=== PATIENT | female | born 1980 | race American Indian/Alaskan Native ===

== ENCOUNTER 2017-08-20 15:06 | Emergency (ER) | payer MEDICAID ==
[2017-08-20 16:06] VITALS: BMI 26.9
[2017-08-20 20:12] VITALS: BP 104/76; PULSE 89; RESP 18; TEMP 97.6; O2SAT 97
--- NOTE | 2017-08-20 21:14 | OBHP ---
Datetime: 08/20/2017 15:00 IP Adm Impression Other: nst reactive IP Admit Plan: Discharge home Admit Comment, IP Provider: 37 year old female sent by her MOSAIC TECHNICIAN (Dr. Aguilar) for evaluation due to advanced maternal age. Patient has no complaints at this time. Patient denies any fever, ch ills, headache, dizziness, changes in vision, chest pain, SOB, abdominal pain, nausea, vomiting, diar jhonatan, constipation, or any urinary symptoms. Issues: Denies, Private Patient of Dr. 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 Last PAP, 5 years ago. Allergies: NKDA Medications: PNV, PO Iron Medical Hx: Asthma Surgical Hx: Laser eye surgery. Social Hx: Denies alcohol, tobacco, drug use Family Hx: Paternal/Maternal Diabetes and HTN. Vitals: BP-104/72, HR-89, SP02-97%RA PE: Gen: AAOx3, Cardiac: +S1/S2, NO murmurs Pulm: CTA Abd: Gravid Abd, non-tender, Ext: Warm Extremities, trace edema. A/P: 37 female presents due to advanced maternal age for nst -Stable, afebrile -CEFM and TOCO Category I -Attending (Dr. Villalpando) discussed with Dr. Aguilar and recomended no further mangament. -Plan discussed with attending (Dr. Villalpando) Sherry Velasquez DO PGY1 patient examiend,agree with sapphire iverson, assessment and plan Patient here for nst due to AMA NST raective Discharge home follow up withandrea aguilar Extremities - PN: Normal Abdomen - PN: Normal Lungs - PN: Normal Heart - PN: Normal Thyroid - PN: Normal HEENT - PN: Normal General - PN: Normal Contraction Comments Provider: occ Vital Signs Provider: Reviewed; Within Normal Limits IP Chief Complaint: evaluation FHR Category Provider Fetus A: Category I Genitourinary Exam: Normal
== END 2017-08-20 15:42 | disposition home or self-care (01) ==
LOC: C.EROB 15:06
DX: Z36.89 Encounter for other specified antenatal screening (principal); O09.519 Supervision of elderly primigravida, unspecified trimester

== ENCOUNTER 2017-08-26 12:24 | Emergency (ER) | payer MEDICAID ==
--- NOTE | 2017-08-26 13:22 | OBHP ---
Datetime: 08/26/2017 12:46 IP Chief Complaint Other: Advanced Maternal Age Admit Comment, IP Provider: 37 year old female sent by her SUPERVISOR DELIVERY DEPARTMENT (Dr. Hernández) for evaluation (NST) due to advanced maternal age. Patient has no complaints at this time. Patient denies any fev er, chills, headache, dizziness, changes in vision, chest pain, SOB, abdominal pain, nausea, vomiting , diarrhea, constipation, or any urinary symptoms. She endorses Finley-Lin contractions. Denies va ginal discharge/bleeding. She endorses Movement. Issues: Denies, Private Patient of Dr. Hernández OB Hx: 1. Current. 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 Last PAP, 5 years ago. Allergies: NKDA Medications: PNV, PO Iron Medical Hx: Asthma Surgical Hx: Laser eye surgery. Social Hx: Denies alcohol, tobacco, drug use Family Hx: Paternal/Maternal Diabetes and HTN. Vitals: T-98.8, P-90, BP-111/76 PE: Gen: AAOx3, Cardiac: +S1/S2, NO murmurs Pulm: CTA Abd: Gravid Abd, non-tender, Ext: Warm Extremities, trace edema. A/P: 37 female presents due to advanced maternal age for nst -Stable, afebrile -CEFM and ANISHA Further Recs as per Dr. Buckner. nst 130 mod mirlela ctg 1 plan dc home labor given po hy f/u in pmd in 2-3 days Sherry Velasquez DO PGY1 FHR - Baseline A Provider: 140 IP Hx Assessment: The History has been Reviewed and is Current EGA AdmitDate IP: 38.3 IP Chief Complaint: Other
--- NOTE | 2017-08-26 13:25 | OBDCSUM ---
Datetime: 08/26/2017 13:22 Discharged to, Provider: Home Follow up at, Provider: as scuhuled Follow up in weeks, Provider: dr childs Discharge Comment, Provider: labor given po hyr f/u dr gould Discharge Diagnosis Prov Other: nst 38wek
[2017-08-26 17:55] VITALS: BP 100/67; PULSE 117; RESP 18; TEMP 98.8; O2SAT 100
== END 2017-08-26 13:40 | disposition home or self-care (01) ==
LOC: C.EROB 12:24
DX: Z36.89 Encounter for other specified antenatal screening (principal); O09.519 Supervision of elderly primigravida, unspecified trimester

== ENCOUNTER 2017-09-03 16:36 | Inpatient (IN) | payer MEDICAID ==
--- NOTE | 2017-09-03 18:21 | OBHP ---
Datetime: 09/03/2017 17:20 IP Adm Impression: Term, intrauterine ; No Active Labor IP Chief Complaint Other: Advanced Maternal Age Size and Date discrepancy IP Admit Plan: Observation/Evaluation Admit Comment, IP Provider: 37 year old female sent by her DISHWASHING MACHINE REPAIRER (Dr. Hernández) for evaluation (NST, BPP, JAVIER, EFW) due to advanced maternal age as well as fundal height only measuring 35 weeks. Patient denies any acute complaints or distress at the moment. Patient endorses movements, br axton de dios contractions, and clear non-odorous vaginal discharge however denies vaginal bleeding, le akage of fluids. Patient also denies any fever, chills, headache, dizziness, changes in vision, chest pain, shortness of breath, abdominal pain, nausea, vomiting, diarrhea, constipation, or any urinary symptoms. Issues: Denies, Private Patient of Dr. Hernández OB Hx: 1. Current. Currently 39 weeks. Plans on natural without epidural. Patient started at 135 lbs and weights 164 as of today. States course of has been free of issues, recentl y began experiencing non-debilitating lower back pain. 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 Denies abormal pap smears. Last PAP, 5 years ago. Allergies: NKDA Medications: vitamins, PO Iron Medical Hx: Asthma which required several hospitalizations however has never been intubated Surgical Hx: Laser eye surgery. Social Hx: Denies alcohol, tobacco, drug use. Lives at home with her who she has been jefry ied to for 4 years but has been in a monogamous relationship with the same partner since 2005. Denies travel outside the country since . 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 Family Hx: Both mother and father are 66 y.o. - no med issues. Mat aunt diagnosed 2017, age 77 - o varian cancer. Vitals: T-98.8, P-90, BP-111/76 PE: Gen: AAOx3, Cardiac: +S1/S2, NO murmurs Pulm: CTA Abd: Gravid, soft, non-tender; Fundal height 36 cm Ext: Warm, trace edema. A/P: 37 , 39 weeks 4 days presents due to advanced maternal age for nst, BPP, JAVIER, EFW -Stable, afebrile -Will continue with NST, get BPP, JAVIER, EFW Further Recs as per Dr. Rainer Davidson , DO PGY1 Attending Note: patient seen, evaluated and examined by me with the Resident. I agree with the ab ove. NST reactive/ Category 1 tracing. clinically stable Plan: as above - anticipate discharge home Case endorsed to oncomng attending FHR - Baseline A Provider: 140 Contraction Comments Provider: occasional EGA AdmitDate IP: 39.4 Vital Signs Provider: Reviewed IP Chief Complaint: evaluation; Other NICHD Variability Prov Fetus A: Moderate 6-25bpm NICHD Accel Fetus A IP Provider: 15X15 FHR Category Provider Fetus A: Category I NICHD Decel Fetus A IP Provider: None Dilatation, Provider: deferred Datetime: 08/26/2017 12:46 Abdomen - PN: Normal Lungs - PN: Normal Heart - PN: Normal HEENT - PN: Normal General - PN: Normal
--- NOTE | 2017-09-03 20:39 | OBHP ---
Datetime: 09/03/2017 20:33 IP Adm Impression: Term, intrauterine IP Admit Plan: Admit to unit; Initiate labor induction protocol Admit Comment, IP Provider: Cheif complaint-NST, BPP HPI 37 year old female sent by her CASHIER COURTESY BOOTH (Dr. Hernández) for evaluation (NST, BPP, JAVIER, EFW) due to advanced maternal age as well as fundal height only measuring 35 weeks. Patient denies any acu te complaints or distress at the moment. Patient endorses movements, kimani de dios contractio ns, and clear non-odorous vaginal discharge however denies vaginal bleeding, leakage of fluids. Patie nt also denies any fever, chills, headache, dizziness, changes in vision, chest pain, shortness of br eath, abdominal pain, nausea, vomiting, diarrhea, constipation, or any urinary symptoms. Issues: Denies, Private Patient of Dr. Hernández OB Hx: 1. Current. Currently 39 weeks. Plans on natural without epidural. Patient started at 135 lbs and weights 164 as of today. States course of has been free of issues, recentl y began experiencing non-debilitating lower back pain. 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 Denies abormal pap smears. Last PAP, 5 years ago. Allergies: NKDA Medications: vitamins, PO Iron Medical Hx: Asthma which required several hospitalizations however has never been intubated Surgical Hx: Laser eye surgery. Social Hx: Denies alcohol, tobacco, drug use. Lives at home with her who she has been jefry ied to for 4 years but has been in a monogamous relationship with the same partner since 2004. Denies travel outside the country since . 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 Family Hx: Both mother and father are 66 y.o. - no med issues. Mat aunt diagnosed 2017, age 77 - o varian cancer. Vitals: bp stable, afebrile PE: Gen: AAOx3, Cardiac: +S1/S2, NO murmurs Pulm: CTA Abd: Gravid, soft, non-tender; Fundal height 36 cm Ext: Warm, trace edema. ultrasound-images reviewed efw 14%.BPP 01/20 A/P: 37 , 39 weeks 4 days presents due to advanced maternal age for nst, BPP, JAVIER, EFW efw 14%.Patient measuirng size<dates.SGA.Patient more than 39 weeks gestation -patient to be admitted for induction of labor Discussed with dr hernández Extremities - PN: Normal Abdomen - PN: Normal Back - PN: Normal Lungs - PN: Normal Heart - PN: Normal Neurologic - PN: Normal General - PN: Normal Contraction Comments Provider: irregular IP Hx Assessment: The History has been Reviewed and is Current EGA AdmitDate IP: 39.4 Vital Signs Provider: Reviewed; Within Normal Limits IP Chief Complaint: Other FHR Category Provider Fetus A: Category I
[2017-09-03] MEDS: Lactated Ringer's 1,000 ML IV SCH (20:45)
--- NOTE | 2017-09-03 20:52 | US ---
EXAM: US Biophysical Profile Without Non-Stress Testing CLINICAL HISTORY: 37 years old, female; Signs and symptoms; Other: S d discrepancy; ; Additional info: S: D discrepancy TECHNIQUE: Real-time ultrasound of the maternal pelvis for biophysical profile evaluation with image documentation. COMPARISON: There are no prior studies for comparison. FINDINGS: Biophysical: Fetus was evaluated for movement, breathing, tone and fluid volume. A score of 2/2 was given for each parameter. IMPRESSION: Normal 8/8 biophysical profile EXAM: US After First Trimester, Transabdominal EXAM DATE/TIME: 09/03/2017 5:40 PM CLINICAL HISTORY: 37 years old, female; Signs and symptoms; Other: S d discrepancy; ; Additional info: S: D discrepancy LMP 11/30/16 TECHNIQUE: Real-time transabdominal obstetrical ultrasound of the maternal pelvis and a second or third trimester with image documentation. COMPARISON: There are no prior studies for comparison. FINDINGS: Fetus: There is a single living intrauterine gestation in cephalic presentation. Heart rate: There is a heart rate of 133 beats per minute. Placenta: Placenta is fundal. Amniotic fluid: Amnionic fluid index measures 9.8 cm. Anatomy: There is a three-vessel cord. PS/ED was measured twice, 1.5 and 2.3. Evaluation of anatomy is limited by positioning and gestational age. BIOMETRICS Gestational age by US: 37 weeks 0 days EFW: 3061 g (14.3%) BPD: 9 cm, 36 weeks 3 days HC: 32.67 m, 37 weeks 0 days AC: 32.7 cm, 36 weeks 4 days FL: 7.36 cm, 37 weeks 5 days IMPRESSION: Single living cephalic fetus, 37 weeks 0 days by sonography, 39 weeks 4 days by dates; estimated weight 3061 g
[2017-09-03 21:13] LABS: BASO # 0.1 K/uL (0.0-0.2); BASO % 0.5 % (0.0-2.0); EOS # 0.1 K/uL (0.0-0.7); EOS % 0.8 % (0.0-4.0); HEMOGLOBIN 13.5 g/dL (11.0-16.0); LYMPH # 2.5 K/uL (1.0-4.3); LYMPH % 24.7 % (20.0-40.0); MEAN CELL VOLUME 98.6 fL (81.0-99.0); MEAN CORPUSCULAR HEMOGLOBIN 33.8 pg (27.0-31.0); MEAN CORPUSCULAR HGB CONC 34.3 g/dL (33.0-37.0); MEAN PLATELET VOLUME 7.4 fL (7.2-11.7); MONO # 1.3 K/uL (0.0-0.8); MONO % 13.1 % (0.0-10.0); NEUT # 6.3 K/uL (1.8-7.0); NEUT % 60.9 % (50.0-75.0); RBC 3.99 Mil/uL (3.80-5.20); RED CELL DISTRIBUTION WIDTH 13.7 % (11.5-14.5); WHITE BLOOD COUNT 10.3 K/uL (4.8-10.8)
[2017-09-03 21:25] LABS: ALB/GLOB RATIO 0.9 (1.0-2.1); ALBUMIN 3.7 g/dL (3.5-5.0); ALT/SGPT 17 U/L (9-52); AST/SGOT 24 U/L (14-36); BLOOD UREA NITROGEN 8 mg/dL (7-17); CALCIUM 9.4 mg/dl (8.6-10.4); GFR AFRICAN-AMERICAN > 60; GFR NON-AFRICAN AMERICAN > 60
[2017-09-03 22:48] LABS: SQUAMOUS EPITHIAL 15 /hpf (0-5); URINE BACTERIA RARE (<OCC); URINE BILIRUBIN NEGATIVE (NEGATIVE); URINE BLOOD NEGATIVE (NEGATIVE); URINE CLARITY Hazy (Clear); URINE COLOR Yellow (YELLOW); URINE GLUCOSE (UA) 1+ mg/dL (Normal); URINE LEUKOCYTE ESTERASE 1+ Leu/uL (Negative); URINE PROTEIN NEGATIVE (NEGATIVE); URINE UROBILINOGEN NORMAL mg/dL (0.2-1.0)
--- NOTE | 2017-09-04 01:07 | OBPN ---
Datetime: 09/04/2017 01:03 IP Progress Impression: Reassuring heart rate IP Procedures: Sterile Vag Exam IP Progress Plan: Cervical Ripening Contraction Comments Provider: irregular ctx IP Progress Note Comment: S-patient comfortable O-VSS Afebrile FHT cat1 [place] irregular ctx sve 0/30/-3 A/P patient being induced for SGA and AMA at 39.5wga -cervidil placed -continue to monitor closely Vital Signs Provider: Reviewed; Within Normal Limits FHR Category Provider Fetus A: Category I Dilatation, Provider: 0 Effacement, Provider: 30 Station, Provider: -3 Datetime: 09/03/2017 17:20 FHR - Baseline A Provider: 140 NICHD Accel Fetus A IP Provider: 15X15 NICHD Variability Prov Fetus A: Moderate 6-25bpm NICHD Decel Fetus A IP Provider: None
[2017-09-04] MEDS ORDERED: Sodium Citrate/Citric Acid 15 ml Sol PO ONE ×2 (01:10→21:58)
[2017-09-05] MEDS ORDERED: Nalbuphine 20 mg/ml Inj (1 ml) IVP PRN (01:00)
[2017-09-05] MEDS ORDERED: Nalbuphine 20 mg/ml Inj (1 ml) ONE (01:06)
[2017-09-05] MEDS ORDERED: cefOXitin 2 GM in Sodium Chloride 0.9% 100 ML IVPB ONE (09:40)
[2017-09-05] MEDS ORDERED: Sodium Citrate/Citric Acid 15 ml Sol PO ONE (09:40)
--- NOTE | 2017-09-05 09:40 | OBPN ---
Datetime: 09/05/2017 09:38 IP Informed Consent Obtain: Section Delivery; Risks, Benefits and Alternatives Discussed Contraction Comments Provider: irrg FHR - Baseline A Provider: 130 IP Progress Note Comment: pt was examined at bed side ve ft/50/-3, unchnged sono bpp 11/20 plan primary c/s called for failed induction r/a/b disx pt understand and agrees NICHD Variability Prov Fetus A: Moderate 6-25bpm Dilatation, Provider: ft Effacement, Provider: 50 Station, Provider: -3
--- NOTE | 2017-09-05 10:01 | US ---
PROCEDURE: Limited Ob ultrasound for biophysical profile HISTORY: sga COMPARISON: None TECHNIQUE: Transvaginal pelvic ultrasound was performed. FINDINGS: Biophysical profile: breathin body movement: 2 Tone: 2 Amniotic Fluid: 2 breathing could not be documented on this examination. The heart rate is 149 beats per minute. IMPRESSION: The biophysical profile score is 6. breathing was not documented on this examination. heart rate is 149 beats per minute. Clinical correlation and follow-up is advised.
[2017-09-05] MEDS ORDERED: Oxytocin 20 units in LR 2,000 ML IV ONE (10:22)
[2017-09-05] MEDS ORDERED: Sodium Citrate/Citric Acid 15 ml Sol ONE (10:22)
[2017-09-05] MEDS ORDERED: Morphine 1 mg/ml preservative-free Inj(Duramorph) ONE (10:59)
[2017-09-05] MEDS ORDERED: Phenylephrine 10 mg/ml Inj ONE (10:59)
[2017-09-05] MEDS ORDERED: Oxytocin 10 Units/ml Inj ONE (11:26)
[2017-09-05] MEDS ORDERED: Oxycodone/Acetaminophen 5/325 mg Tab PO PRN ×2 (11:56)
[2017-09-05] MEDS ORDERED: DiphenhydrAMINE 50 mg/ml Inj IVP PRN (11:59)
[2017-09-05] MEDS ORDERED: Morphine 4 MG/ML VIAL IV PRN (12:01)
--- NOTE | 2017-09-05 14:29 | PCM.SURG1 ---
Surgeon's Initial Post Op Note - Surgeon's Notes Surgeon: dr bridges Staff Training And Development Manager: dr jurado Type of Anesthesia: Spinal Anesthesia Administered By: dr shaw Pre-Operative Diagnosis: 37 yr failed induction Operative Findings: ee the op reort Post-Operative Diagnosis: same Operation Performed: primary section Specimen/Specimens Removed: cord blood. cord gas. placente Estimated Blood Loss: EBL {In ML}: 800 Blood Products Given: N/A Drains Used: No Drains Post-Op Condition: Good Date of Surgery/Procedure: 09/05/17 Time of Surgery/Procedure: 12:00
[2017-09-05] MEDS: Simethicone 80 mg Chewtab PO SCH ×3 (16:57→21:45)
--- NOTE | 2017-09-05 18:05 | OBDS ---
DELIVERY PERSONNEL Delivery Doctor: Cristofer Buckner MD Scrub Nurse: Eda Giles Assembler Tubing: Brittney Cuenca RN Anesthesiologist: Addison Gordon MD MATERNAL INFORMATION Delivery Anesthesia: Spinal Medications in Delivery: Pitocin, cytotec Estimated Blood Loss (ml): 800 RN Comments: Shirin.c/section to a live baby girl, attended to bydr. Villareal and Micheal michaels. 9:9, s table on mother bare chest. Provider Comments: baby deliverd in [place]. end clean cord arround bosy no com end clean LABOR SUMMARY EDC: 09/06/2017 00:00 No. Babies in Womb: 1 Attempted: No Labor Anesthesia: IV Sedation LABOR INFORMATION Cervical Ripening Agents: Cervidil; Cytotec @ Group B Beta Strep: Negative Antibiotics # of Doses: 1 Antibiotics Time of Last Dose: 1045. Steroids Given: None Reason Steroids Not Administered: Not Applicable MEMBRANES Membranes Rupture Method: Artificial Rupture of Membranes: 09/05/2017 11:12 Length of Rupture (hrs): 0.02 Amniotic Fluid Color: Clear Amniotic Fluid Amount: Moderate Amniotic Fluid Odor: Normal STAGES OF LABOR Stage 3 hrs: 0 Stage 3 min: 1 CSECTION DELIVERY Primary Indication: Failed Induction CSection Urgency: Elective CSection Incidence: Primary Labor: No Labor Elective: Elective CSection Incision: Lower Uterine Transverse BABY A INFORMATION Infant Delivery Date/Time: 09/05/2017 11:13 Method of Delivery: Born in Route : No : N/A Forceps: Outlet Vacuum Extraction: N/A Shoulder Dystocia : No SHOULDER DYSTOCIA BABY A Infant Delivery Date/Time: 09/05/2017 11:13 PRESENTATION/POSITION BABY A Presentation: Cephalic Cephalic Presentation: Vertex Vertex Position: Left Occipital Anterior Breech Presentation: N/A PLACENTA INFORMATION BABY A Placenta Delivery Time : 09/05/2017 11:14 Placenta Method of Delivery: Manual Removal Placenta Status: Delivered SCORES BABY A Heart Rate 1 min: >100 bpm Resp Effort 1 min: Good Cry Reflex Irritability 1 min: Cough or Sneeze or Pulls Away Muscle Tone 1 min: Active Motion Color 1 min: Body [place], Extremities Blue SCORE 1 MIN: 9 Heart Rate 5 min: >100 bpm Resp Effort 5 min: Good Cry Reflex Irritability 5 min: Cough or Sneeze or Pulls Away Muscle Tone 5 min: Active Motion Color 5 min: Body [place], Extremities Blue SCORE 5 MIN: 9 INFANT INFORMATION BABY A Gestational Age at Delivery: 39.6 Gestational Status: Term Infant Outcome : Liveborn Condition : Stable Sex: Female IDENTIFICATION/MEDS BABY A ID Band Number: [id number] ID Band Location: Left Leg; Left Arm Sensor Applied: Yes Sensor Number: [id number] Sensor Location : Cord Clamp Vitamin K Given : Not Given Erythromycin Given: Not Given WEIGHT/LENGTH BABY A Birthweight (gms): 2910 Infant Weight (lb): 6 Weight (oz): 7 Infant Length Inches: 19.00 Length cms: 48.3 CORD INFORMATION BABY A No. Cord Vessels: 3 Nuchal Cord : N/A Nuchal Cord Other: Around the body True Knot: 0 Cord Blood Taken: Yes Suction: Mouth; Nose ASSESSMENT BABY A Infant Complications: None Physical Findings at Delivery: Within Normal Limits Infant Respirations: Appears Normal Linux Administrator/ALS Called : No Infant Care By: DR. Villareal/ Ken GAYTAN Transferred To: Remains with Mother
[2017-09-05] MEDS: Lactated Ringer's 1,000 ML IV SCH (23:00)
--- NOTE | 2017-09-06 05:20 | OP ---
PROCEDURE DATE: PREOPERATIVE DIAGNOSIS: A 37-year-old 1, para 0, with 39 weeks, with scheduled repeat section. POSTOPERATIVE DIAGNOSIS: A 37-year-old 1, para 0, with 39 weeks, with scheduled repeat section. SURGEON: Cristofer Buckner MD ROUGH RICE GRADER: Byron Bajwa MD who was present throughout the surgical exposure, retraction, pushing at the time of the delivery. TYPE OF ANESTHESIA: Spinal. ANESTHESIA ADMINISTERED BY: . COMPLICATIONS: None. ESTIMATED BLOOD LOSS: 800 mL. DESCRIPTION OF PROCEDURE: After informed consent was obtained, the patient was brought to the operating room placed on the table where spinal anesthesia was given. Once the anesthesia was given, the patient was prepped and draped in the normal sterile fashion. At the site of the previous skin incision, an incision was made with the knife, the subcutaneous cut with a Bovie. The fascia was excised on both the sides using curved Leger scissors. The fascia was from site of umbilicus and then at the site of then at the site of rectus muscle. Peritoneum was incised and we went into the abdominal cavity. Bladder blade was placed. Bladder flap was created. Lower uterine segment incision was made with a knife, Bovie, and curved Leger scissors. Baby delivered in YADIEL position. Cord was clamped and cut. Baby was handed to the awaiting security public safety officer. Cord gas was taken. Placenta delivered manually and sent to Pathology. Uterus was exteriorized and cleared of all clots and debris. After that, uterus was boggy, extra Pitocin was given. A lot of massage was done. After that, the uterine incision was closed using #1 Vicryl in running interlocking fashion, second layer was closed with the same stitch. After that, the uterus was returned back to the abdominal cavity. The cul-de-sac was cleared of all the clots and debris. Gutters were cleared of all the clots and debris. After that, peritoneum was closed using 2-0 Vicryl in a running interlocking fashion. The muscle was closed using 2-0 Vicryl in running interlocking fashion. Fascia was closed using #1 Vicryl in running interlocking fashion. Subcutaneous tissue was closed with 0-Vicryl in interrupted fashion. Skin was closed using 3-0 Monocryl curved needle. Patient tolerated the procedure well. Lap, sponge, and instrument counts were correct x2. Cristofer Buckner MD
[2017-09-06 08:24] LABS: BASO # 0.1 K/uL (0.0-0.2); BASO % 0.6 % (0.0-2.0); EOS % 0.1 % (0.0-4.0); HEMOGLOBIN 12.4 g/dL (11.0-16.0); LYMPH # 1.6 K/uL (1.0-4.3); MEAN CELL VOLUME 98.7 fL (81.0-99.0); MEAN CORPUSCULAR HEMOGLOBIN 33.5 pg (27.0-31.0); MEAN CORPUSCULAR HGB CONC 33.9 g/dL (33.0-37.0); MEAN PLATELET VOLUME 7.6 fL (7.2-11.7); MONO # 1.3 K/uL (0.0-0.8); MONO % 10.8 % (0.0-10.0); NEUT # 9.4 K/uL (1.8-7.0); NEUT % 75.5 % (50.0-75.0); RBC 3.7 Mil/uL (3.80-5.20); RED CELL DISTRIBUTION WIDTH 13.8 % (11.5-14.5); WHITE BLOOD COUNT 12.5 K/uL (4.8-10.8)
[2017-09-06] MEDS: Simethicone 80 mg Chewtab PO SCH ×4 (09:03→22:22)
--- NOTE | 2017-09-06 09:51 | OBPPN ---
Datetime: 09/06/2017 09:47 PP Pain Prov: Within normal limits PP Nausea Prov: Denies PP Flatus Prov: Yes PP Abdomen/Uterus Prov: Normal PP Lochia Prov: Normal PP Extremities Prov: Normal PP Comments Phys Exam Prov: fudus below umb ext no edema,no calf incision cleam and dry PP Impression Prov: Normal progression PP Plan Prov: Continue present management PP Progress Note Prov: pt was seen at bed side, pain undr control,no n/v, tolerating deit, waiting t ovoidmin lochia, flatus- p0d#1 s/p c/s cont pain ma cbc cont pp care encourage ambulation Vital Signs Provider PP: Reviewed; Within Normal Limits
[2017-09-06 10:59] VITALS: O2SAT 98
[2017-09-06] MEDS ORDERED: Bisacodyl 5mg EC Tab PO ONE (11:56)
[2017-09-07] MEDS: Simethicone 80 mg Chewtab PO SCH ×4 (09:27→21:36)
--- NOTE | 2017-09-07 10:15 | OBPPN ---
Datetime: 09/07/2017 08:29 PP Pain Prov: Within normal limits PP Nausea Prov: Denies PP Flatus Prov: Yes PP BM Prov: No PP Breasts Prov: Normal PP Heart Prov: Normal PP Lungs Prov: Normal PP Abdomen/Uterus Prov: Normal PP Lochia Prov: Normal PP Vulva/Perineum Prov: Not Done PP CVA Tenderness Prov: Not Done PP Extremities Prov: Normal PP C/S Incision Prov: Normal PP Progress Prov: Normal PP Impression Prov: Normal progression; Pain PP Plan Prov: Continue present management PP Progress Note Prov: Patient seen and examined. No acute events overnight. Admits to mild intermit tent sharp pain near incision site. Admits to flatus and is tolerating diet. Denies fever, chills, ch est pain, SOBm N/V. 12 point ROS negative except as indicated in HPI Physical Examination: as per above Assessment and Plan: Patient is a 37 year old female s/p Lower Uterine Transverse csection POD #2. - continue present managment - pain control PRN percocet - patient currently on colace, consider change to senakot - encourage ambulation - encourage incentive spirometer attending addendum pt seen _ examined by me. pain well controlled. no c/o p: benefits of b reastfeedng reinforced riskof addicition w/ percocet d/w pt and advised to use sparingly senokot s for constip IP PP Procedures: None Vital Signs Provider PP: Within Normal Limits
[2017-09-07] MEDS ORDERED: Docusate-Senna 50 mg-8.6 mg Tab PO PRN (20:00)
[2017-09-08] MEDS ORDERED: Measles, Mumps, and Rubella 0.5 ML VIAL SC ONE (09:01)
[2017-09-08 18:16] VITALS: BP 123/82; PULSE 89; RESP 18; TEMP 98.9
== END 2017-09-08 13:30 | disposition home or self-care (01) | DRG 371 ==
LOC: C.EROB 16:36 → C.4D 20:28 → C.4M 09-05 14:23
PROVIDERS: ADMIT Obstetrics & Gynecology; ATTEND Obstetrics & Gynecology
PROC: 10D00Z1 Extraction of Products of Conception, Low, Open Approach (ICD-10-PCS; principal; 2017-09-05)
PROC: 3E0P7VZ Introduction of Hormone into Female Reproductive, Via Natural or Artificial Opening (ICD-10-PCS; 2017-09-05)
PROC: 10907ZC Drainage of Amniotic Fluid, Therapeutic from Products of Conception, Via Natural or Artificial Opening (ICD-10-PCS; 2017-09-05)
DX: O36.5930 Maternal care for other known or suspected poor fetal growth, third trimester, not applicable or unspecified (principal); O61.9 Failed induction of labor, unspecified; J45.909 Unspecified asthma, uncomplicated; M54.5 Low back pain; O34.211 Maternal care for low transverse scar from previous cesarean delivery; Z37.0 Single live birth; Z3A.39 39 weeks gestation of pregnancy; O69.81X0 Labor and delivery complicated by cord around neck, without compression, not applicable or unspecified; O99.52 Diseases of the respiratory system complicating childbirth; Z80.41 Family history of malignant neoplasm of ovary